=== PATIENT | male | born 1965 | race Caucasian/White ===

== ENCOUNTER 2018-05-26 20:41 | Emergency (ER) | payer BC ==
[2018-05-26 20:54] VITALS: BP 117/70
--- NOTE | 2018-05-26 21:21 | ED ---
HPI Febrile Illness - HPI Summary HPI Summary: 52-year-old male with history of rheumatoid arthritis and currently on Humira and prednisone presents with 2 day history of fever. States fever has been as high as 103.9 Fahrenheit. Took ibuprofen approximately 7 PM tonight. Associated with some generalized malaise, fatigue, and right hip versus lower back pain. Denies headache, neck pain, photophobia, nasal congestion or drainage, sore throat, ear pain or drainage, cough, chest pain, shortness of breath, abdominal pain, nausea vomiting or diarrhea, dysuria, frequency, urgency , or hematuria. Significant other had URI with fever last week. - History of Current Complaint Chief Complaint: UCGeneralIllness Time Seen by Provider: 05/26/18 20:51 Hx Obtained From: Patient Initial Severity: Mild Current Severity: Mild Pain Intensity: 3 Aggravating Factors: Nothing Alleviating Factors: OTC Medicine Associated Signs and Symptoms: Chills, Myalgia - Review is - Allergy/Home Medications Allergies/Adverse Reactions: Allergies Allergy/AdvReac Type Severity Reaction Status Date / Time No Known Allergies Allergy Verified 05/26/18 20:53 Home Medications: Home Medications Adalimumab [Humira] 40 mg SQ DAILY WITH MEAL 05/26/18 [History Confirmed ] DULoxetine DR CAP* [Cymbalta CAP*] 60 mg PO DAILY 05/26/18 [History Confirmed ] Diclofenac Sodium 75 mg PO DAILY WITH MEAL 05/26/18 [History Confirmed 05/26/18] Omeprazole CAP* [Prilosec CAP* 20 MG] 20 mg PO DAILY 05/26/18 [History Confirmed 05/26/18] buPROPion SR TAB* [Wellbutrin SR TAB*] 300 mg PO BID 05/26/18 [History Confirmed 05/26/18] predniSONE [Prednisone 5 MG Tab.Ds.Pk] 5 mg PO DAILY WITH MEAL 05/26/18 [ History Confirmed 05/26/18] PMH/Surg Hx/FS Hx/Imm Hx Previously Healthy: Yes Endocrine/Hematology History: Reports: Autoimmune Disease - rheumatoid arthritis - Surgical History Surgery Procedure, Year, and Place: lesion in throat Infectious Disease History: No Infectious Disease History: Denies: Hx Hepatitis, Hx Human Immunodeficiency Virus (HIV), Traveled Outside the [place] in Last 30 Days - Family History Known Family History: Positive: Other - noncontributory - Social History Occupation: Employed Full-time Lives: With Family Alcohol Use: Occasionally Substance Use Type: Reports: None Smoking Status (MU): Former Smoker Type: Cigarettes Have You Smoked in the Last Year: No Review of Systems Positive: Fever, Chills Eyes: Negative ENT: Negative Cardiovascular: Negative Respiratory: Negative Gastrointestinal: Negative Genitourinary: Negative Positive: Arthralgia Skin: Negative All Other Systems Reviewed And Are Negative: Yes Physical Exam Triage Information Reviewed: Yes Vital Signs On Initial Exam: Initial Vitals Temp Pulse Resp BP Pulse Ox 98.7 F 71 20 117/70 99 05/26/18 20:48 05/26/18 20:48 05/26/18 20:48 05/26/18 20:48 05/26/18 20:48 Vital Signs Reviewed: Yes Appearance: Positive: Well-Appearing, No Pain Distress, Well-Nourished Skin: Positive: Warm, Skin Color Reflects Adequate Perfusion, Dry Eyes: Positive: Conjunctiva Clear ENT: Positive: Hearing grossly normal, Pharynx normal, TMs normal, Uvula midline. Negative: Nasal congestion, Nasal drainage, Sinus tenderness Neck: Positive: Supple, Nontender, No Lymphadenopathy Respiratory/Lung Sounds: Positive: Clear to Auscultation, Breath Sounds Present , Other - Fine crackles right middle lobe Cardiovascular: Positive: Normal, RRR, S1, S2. Negative: Murmur Abdomen Description: Positive: Nontender, No Organomegaly, Soft. Negative: CVA Tenderness (R), CVA Tenderness (L) Musculoskeletal: Positive: Normal Diagnostics - Vital Signs Vital Signs Temp Pulse Resp BP Pulse Ox 05/26/18 20:48 98.7 F 71 20 117/70 99 - Laboratory Lab Statement: Any lab studies that have been ordered have been reviewed, and results considered in the medical decision making process. Course/Dx - Course Course Of Treatment: 52-year-old patient with report of fever as high as 103.9 since yesterday. History of rheumatoid arthritis and presently on Humira and prednisone. Physical exam was unremarkable although some fine crackles were noted right middle lobe. Patient was also reporting some low back pain versus hip pain. No CVA tenderness was noted. Hip exam benign. Pqpft-kc-[id number] urinalysis was negative except for trace blood. Two-view chest x-ray showed no active disease process. This was a preliminary reading done by myself. Suspect viral origin for his fever however will obtain a CBC tonight to evaluate white blood cell count. Recommend conservative treatment for viral illness including rest, plenty of fluids, and vnim-huh-djhvheg acetaminophen or ibuprofen according to directions as needed for fever, aches, and pain. Patient should contact his electric tool repairer for directions regarding his next dose of Humira. Patient is aware he should seek immediate medical attention in the emergency room should he have persistent fever or any worsening of symptoms. - Febrile Illness Differential Diagnoses: Fever of Unknown Origin, Pyelonephritis, Sepsis, Other: - UTI, viral syndrome, pneumonia - Diagnoses Provider Diagnoses: Fever and chills Discharge - Sign-Out/Discharge Documenting (check all that apply): Patient Departure - Discharge Plan Condition: Stable Disposition: HOME Patient Education Materials: Viral Syndrome (ED) Referrals: Hemal Gutierrez [Primary Care Provider] - 3 Days (if symptoms persist.) Additional Instructions: Your exam today did not reveal any origin for your fever. I suspect that it is viral in origin. Your chest x-ray was normal and a urine test was also normal except for some trace blood. I recommend make an appointment with her primary care provider to have this rechecked. Get plenty of rest. Drink plenty of fluids especially while you have fever to avoid dehydration. Take kexc-hbw-jtpexsi acetaminophen (Tylenol) or ibuprofen ( Advil, Motrin) according to directions as needed for fever, aches, or pain. Follow-up with your primary care provider in 3 days if symptoms persist. Please contact her electric tool repairer for directions regarding your next dose of Humira. Seek immediate medical attention in the emergency room should she have persistent fever despite taking ibuprofen or acetaminophen, have chest pain, shortness of breath, or any worsening of symptoms. - Billing Disposition and Condition Condition: STABLE Disposition: Home
--- NOTE | 2018-05-27 07:09 | RAD ---
INDICATION: Fever and shortness of breath COMPARISON: None TECHNIQUE: PA and lateral views of the chest were obtained. FINDINGS: The heart and mediastinum are normal in size and contour. There is asymmetric faint patchy density overlying the mid-level right lung. Elsewhere the lungs are grossly clear. There is no evidence of large pleural effusion. Visualized bones are normal for the patient's age. There is no radiographic evidence of free air beneath the diaphragm IMPRESSION: PATCHY DENSITY OVERLYING THE MID-LEVEL RIGHT LUNG COULD BE PNEUMONIA IN THE CORRECT CLINICAL SETTING. FOLLOW-UP CHEST X-RAY AFTER AN APPROPRIATE COURSE OF THERAPY IS ADVISED TO ASCERTAIN RESOLUTION. R2
--- NOTE | 2018-05-27 07:20 | UC ---
- Progress Note Progress Note: Final read of CXR Attending Doctor: Roger Menon ([id number]) Butt Presser: Ezequiel Jackson ([id number]) Technology Instructor: JOSE (SHYAMANCE) Report Date: 05/26/2018 21:15:00 Report Status: Final Begin of Report Content Patient Name: VIVIEN MUNOZ Medical Record#: [id number] Ordering Physician: Franklin Gonzalez NP Acct.#: [id number] : 1965 Age: 52 Sex: M Location: [facility] Exam Date: 05/26/182114 ADM Status: DEP ER Order Information: CHEST PA LAT 2 VWS Accession Number: [id number] CPT: 48503 INDICATION: Fever and shortness of breath COMPARISON: None TECHNIQUE: PA and lateral views of the chest were obtained. FINDINGS: The heart and mediastinum are normal in size and contour. There is asymmetric faint patchy density overlying the mid-level right lung. Elsewhere the lungs are grossly clear. There is no evidence of large pleural effusion. Visualized bones are normal for the patient's age. There is no radiographic evidence of free air beneath the diaphragm IMPRESSION: PATCHY DENSITY OVERLYING THE MID-LEVEL RIGHT LUNG COULD BE PNEUMONIA IN THE CORRECT CLINICAL SETTING. FOLLOW-UP CHEST X-RAY AFTER AN APPROPRIATE COURSE OF THERAPY IS ADVISED TO ASCERTAIN RESOLUTION. R2 <Electronically signed by Ezequiel Jackson MD in OV> 05/27/18704 Dictated By: Ezequiel Jackson MD Dictated Date/Time: 05/27/18704 Transcribed Date/Time: 05/27/18702 Copy to: CC:Hemal HERNANDEZ; Franklin Gonzalez NP; Roger Menon MD Imaging - [facility] Imaging [facility] Urgent [facility] [address] [place] [address] [place] [address] ph ([phone]) ph ([phone]) ph ([phone]) Pt was not started on abx Pt is immunocompromised with fever Will send Rx to pharmacy Doxycycline Spoke to charge, Courtney Barfield - to call pt and update patient 05/27/18 7:18 Course/Dx - Diagnoses Provider Diagnoses: Fever and chills Discharge - Sign-Out/Discharge Documenting (check all that apply): Post-Discharge Follow Up - Discharge Plan Condition: Stable Disposition: HOME Patient Education Materials: Community Acquired Pneumonia (ED) Referrals: [place] HERNANDEZ,Hemal Lopez [Primary Care Provider] - 3 Days (if symptoms persist.) Additional Instructions: Your exam today did not reveal any origin for your fever. I suspect that it is viral in origin. Your chest x-ray was normal and a urine test was also normal except for some trace blood. I recommend make an appointment with her primary care provider to have this rechecked. Get plenty of rest. Drink plenty of fluids especially while you have fever to avoid dehydration. Take rcpz-byi-tohfnyk acetaminophen (Tylenol) or ibuprofen ( Advil, Motrin) according to directions as needed for fever, aches, or pain. Follow-up with your primary care provider in 3 days if symptoms persist. Please contact her tip tester for directions regarding your next dose of Humira. Seek immediate medical attention in the emergency room should she have persistent fever despite taking ibuprofen or acetaminophen, have chest pain, shortness of breath, or any worsening of symptoms. - Billing Disposition and Condition Condition: STABLE Disposition: Home
[2018-05-27 11:06] LABS: Hematocrit 40 % (42-52); Mean Corpuscular HGB Conc 35 g/dl (31-36); Mean Corpuscular Hemoglobin 32 pg (27-31); Mean Corpuscular Volume 91 fL (80-94); Mean Platelet Volume 8.7 um3 (7.4-10.4); Platelet Count 206 10^3/ul (150-450); Red Blood Count 4.45 10^6/ul (4.00-5.40); Red Cell Distribution Width 14 % (10.5-15); White Blood Count 10.4 10^3/ul (3.5-10.8)
[2018-05-27 11:09] LABS: ABS Basophils 0 10^3/ul (0-0.2); ABS Eosinophils 0.1 10^3/ul (0-0.6); ABS Lymphocytes 1.4 10^3/ul (1.0-4.8); ABS Neutrophils 7.8 10^3/ul (1.5-7.7)
[2018-05-27 11:39] LABS: ABS Basophils 0 10^3/ul (0-0.2); ABS Neutrophils 5.7 10^3/ul (1.5-7.7); Monocytes % 10 % (0-7)
== END 2018-05-26 22:08 | disposition home or self-care (01) ==
LOC: UCEAST 20:41
DX: R50.9 Fever, unspecified (principal); R53.81 Other malaise; R53.83 Other fatigue; Z87.891 Personal history of nicotine dependence
CPT/HCPCS: 36415; 71046; 81003; 85025; 85060; 99211; G0463

== ENCOUNTER 2018-05-27 07:39 | Inpatient (IN) | payer BC ==
[2018-05-27] MEDS ORDERED: cefTRIAXone(*) 1 GM in NS 0.9% 50 ML* 50 ML IVPB ONE (08:09)
--- NOTE | 2018-05-27 08:23 | ED ---
Abdominal Pain/Male - HPI Summary HPI Summary: This is scribe Jam Antoine documenting for attending Dr. Christophe Drake This patient is a 52 year old M presenting to [facility] accompanied by his with a chief complaint of fever since 3 days ago. Patient endorses their thermometer measured the highest fever at 105 this AM, so he took 600 mg ibuprofen which alleviated sx to near normal temperature. He endorses dull lower back pain, N/V/D (diarrhea was watery, started last night), cramping abd pain, hematuria, and dull left ear pain. Pt denies dysuria, frequency, urgency, recent traveling, denies sore throat, eating unusual food, taking abx recently, rashes, and finding any ticks but they are a possibility. PMHx back issues, knee issues, hip issues. PMHx RA, osteoarthritis, rx Maida (started 8 weeks ago and done 4 doses), Prednisone. I, Dr. Saeed personally performed the services described in this documentation as scribed in my presence and it is both accurate and complete. - History of Current Complaint Chief Complaint: EDFever Stated Complaint: FEVER,V/D,CHILLS Time Seen by Provider: 05/27/18 08:01 Hx Obtained From: Patient, Family/Law Enforcement Director - Onset/Duration: Gradual Onset, Lasting Days - 3, Still Present Timing: Constant, Lasting Days Severity Initially: Moderate Severity Currently: Moderate Pain Intensity: 6 Pain Scale Used: 0-10 Numeric Location: Diffuse Radiates: Yes Radiates to: Back Character: Dull, Cramping Aggravating Factor(s): Nothing Alleviating Factor(s): Nothing Associated Signs And Symptoms: Positive: Fever, Back Pain, Urinary Symptoms, Nausea, Vomiting, Diarrhea - Allergies/Home Medications Allergies/Adverse Reactions: Allergies Allergy/AdvReac Type Severity Reaction Status Date / Time No Known Allergies Allergy Verified 05/27/18 07:46 PMH/Surg Hx/FS Hx/Imm Hx Endocrine/Hematology History: Denies: Hx Diabetes, Hx Thyroid Disease Cardiovascular History: Denies: Hx Hypertension Respiratory History: Denies: Hx Asthma, Hx Chronic Obstructive Pulmonary Disease (COPD) GI History: Denies: Hx Ulcer History: Denies: Hx Dialysis Musculoskeletal History: Reports: Hx Arthritis, Hx Rheumatoid Arthritis, Hx Back Problems Sensory History: Denies: Hx Legally Blind, Hx Deafness Opthamlomology History: Denies: Hx Legally Blind EENT History: Denies: Hx Deafness Psychiatric History: Denies: Hx Schizophrenia - Surgical History Surgery Procedure, Year, and Place: lesion in throat Infectious Disease History: No Infectious Disease History: Denies: Hx Hepatitis, Hx Human Immunodeficiency Virus (HIV), Traveled Outside the [place] in Last 30 Days - Family History Known Family History: Positive: Cardiac Disease, Hypertension, Diabetes - Social History Lives: With Family Alcohol Use: Occasionally Substance Use Type: Reports: Marijuana Substance Use Comment - Amount & Last Used: daily medical use Hx Tobacco Use: No Smoking Status (MU): Former Smoker Type: Cigarettes Have You Smoked in the Last Year: No Review of Systems Positive: Fever Positive: Ear Ache - left Positive: Abdominal Pain, Vomiting, Diarrhea, Nausea Positive: hematuria. Negative: dysuria, frequency, urgency Positive: Arthralgia - right knee, hip, general (RA and OA), Myalgia - lower back Negative: Rash All Other Systems Reviewed And Are Negative: Yes Physical Exam - Summary Physical Exam Summary: VITAL SIGNS: Reviewed. GENERAL: Patient is a well-developed and nourished male who is lying comfortable in the stretcher. Patient is not in any acute respiratory distress. HEAD AND FACE: No signs of trauma. No ecchymosis, hematomas or skull depressions. No sinus tenderness. EYES: PERRLA, EOMI x 2, No injected conjunctiva, no nystagmus. EARS: Hearing grossly intact. Ear canals and tympanic membranes are within normal limits. MOUTH: Oropharynx within normal limits. Dry oral mucosa. NECK: Supple, trachea is midline, no adenopathy, no JVD, no carotid bruit, no c- spine tenderness, neck with full ROM. CHEST: Symmetric, no tenderness at palpation LUNGS: Clear to auscultation bilaterally. No wheezing or crackles. CVS: Regular rate and rhythm, S1 and S2 present, no murmurs or gallops appreciated. ABDOMEN: Soft, non-tender. No signs of distention. No rebound no guarding, and no masses palpated. Bowel sounds are normal. EXTREMITIES: FROM in all major joints, no edema, no cyanosis or clubbing. NEURO: Alert and oriented x 3. No acute neurological deficits. Speech is normal and follows commands. SKIN: Dry and warm Triage Information Reviewed: Yes Vital Signs On Initial Exam: Initial Vitals Temp Pulse Resp BP Pulse Ox 98.9 F 76 18 120/73 95 05/27/18 07:42 05/27/18 07:42 05/27/18 07:42 05/27/18 07:42 05/27/18 07:42 Vital Signs Reviewed: Yes Diagnostics - Vital Signs Vital Signs Temp Pulse Resp BP Pulse Ox 05/27/18 08:13 100.3 F 05/27/18 07:42 98.9 F 76 18 120/73 95 - Laboratory Result Diagrams: 05/28/18 05:24 05/28/18 05:24 Lab Statement: Any lab studies that have been ordered have been reviewed, and results considered in the medical decision making process. - EKG 0824 Cardiac Rate: NL - 72 ST Segment: Normal Ectopy: None EKG Interpretation: No STEMI, nl axis Abdominal Pain Fem Course/Dx - Course Assessment/Plan: This patient is a 52-year-old male who presents to the emergency department with chief complaint of having fevers up to 105. The patient has also complaints of watery diarrhea with no blood or mucus. Blood test results without any significant abnormality, except of for C reactive protein 139. Chest x-ray performed yesterday at the urgent care shows that the patient has a patchy density over the mid level of right long which equal represent pneumonia in the correct clinical setting. Because of the fever, the positive infiltrate in the chest x-ray and the patient is taking Humira, I believe the patient has pneumonia. Therefore I discussed the case with Dr. Tipton from the hospital services who accepted the patient for admission. Patient is hemodynamically stable alert and oriented 3. - Diagnoses Provider Diagnoses: Pneumonia - Provider Notifications Discussed Care Of Patient With: Royal Tipton Time Discussed With Above Provider: 09:19 Instructed by Provider To: Other - Accepts admission. Discharge - Sign-Out/Discharge Documenting (check all that apply): Patient Departure - admit - Discharge Plan Condition: Fair Disposition: ADMITTED TO [facility] - Billing Disposition and Condition Condition: FAIR Disposition: Admitted to [facility] Attestations User Type: Provider with Scribe Provider Attestation: The documentation recorded by the scribe accurately reflects the service I personally performed and the decisions made by me. Attestation Statement User Type: Provider - I, Dr. Saeed personally performed the services described in this documentation as scribed in my presence and it is both accurate and complete.
[2018-05-27 08:32] LABS: ABS Basophils 0 10^3/ul (0-0.2); ABS Eosinophils 0.1 10^3/ul (0-0.6); ABS Monocytes 0.9 10^3/ul (0-0.8); ABS Neutrophils 7.7 10^3/ul (1.5-7.7); ABS Nucleated RBC 0 10^3/ul; Eosinophil % 0.8 % (0-6); Hematocrit 41 % (42-52); Hemoglobin 14.4 g/dl (14.0-18.0); Lymphocyte % 10.2 % (25-47); Mean Corpuscular HGB Conc 35 g/dl (31-36); Mean Corpuscular Hemoglobin 32 pg (27-31); Mean Corpuscular Volume 89 fL (80-94); Mean Platelet Volume 7.6 um3 (7.4-10.4); Nucleated Red Blood Cells % 0; Platelet Count 199 10^3/ul (150-450); Red Blood Count 4.57 10^6/ul (4.00-5.40); Red Cell Distribution Width 14 % (10.5-15); White Blood Count 9.7 10^3/ul (3.5-10.8)
[2018-05-27] MEDS: NS 0.9% 1000 ML* 2,000 ML IV ONE (08:48)
[2018-05-27 08:53] LABS: EGFR Non-African American 99.7 (>60)
[2018-05-27 10:39] LABS: Urine Appearance Clear; Urine Blood Negative (Negative); Urine Color Yellow; Urine Ketones Trace (Negative); Urine Protein Negative (Negative); Urine Specific Gravity 1.015 (1.010-1.030); Urine Urobilinogen Negative (Negative)
[2018-05-27] MEDS ORDERED: Albuterol 2.5 MG/3 ML NEB.SOL* (0.083%) INH PRN (11:26)
[2018-05-27] MEDS ORDERED: Albuterol/Ipratropium NEB.SOL* Albuterol 2.5 MG/Ipratropium 0.5 MG 3 ML INH SCH ×2 (12:00→13:00)
[2018-05-27] MEDS ORDERED: Azithromycin IV(*) 500 MG in D5W 250 ML BAG* 250 ML IVPB SCH (12:00)
[2018-05-27] MEDS: NS 0.9% 1000 ML* 1,000 ML IV SCH (12:50)
[2018-05-27] MEDS: Enoxaparin(*) 40 MG/0.4 ML SYR SUBCUT SCH (12:50)
[2018-05-27] MEDS ORDERED: Acetaminophen TAB* 325 MG ONE (13:01)
[2018-05-27] MEDS: Azithromycin IV(*) 500 MG in NS 0.9% 250 ML* 250 ML IVPB SCH (13:02)
[2018-05-27] MEDS: Acetaminophen TAB* 325 MG PO PRN ×2 (13:02→23:51)
--- NOTE | 2018-05-27 13:11 | HP ---
HISTORY AND PHYSICAL: DATE OF ADMISSION: 05/27/18 CHIEF COMPLAINT: Fever. HISTORY OF PRESENT ILLNESS: The patient is a 52-year-old gentleman with history of osteoarthritis of his knees, slip disk between L1 to L2 and L4 to L5 as well as RA on Humira, who mentioned that he has been having some fevers for the past 3 days, which was accompanied by a symptom of dyspnea on exertion. He denied any increased cough, no sputum production, but feels chilled and flushed ever since and generally feels unwell. He mentions that last night his fever increased to a 105 degrees and he began having some watery diarrhea and has at least vomited x1. A few hours previous to last night's episode, he visited the urgent care clinic and had a chest x-ray and was told that it was normal. He presented today given the symptoms described last night and upon review of the chest x-ray he does have some possible air bronchograms in the right middle lobe and in the appropriate clinical setting in an otherwise immunocompromised patient. This is likely outside medical sales representative of pneumonia. In the ED, he had been given Rocephin and I have added azithromycin to cover for atypicals to his regimen. PAST MEDICAL HISTORY: 1. Rheumatoid arthritis. 2. Slip disk in the level of L1 to L2 and L4 to L5. 3. Osteoarthritis of the knees. 4. GERD. 5. Depression. PAST SURGICAL HISTORY: None claimed by patient. ALLERGIES: NKDA. FAMILY HISTORY: Rheumatoid arthritis, his mother; heart disease his father; DVT his brother and possibly his mother. SOCIAL HISTORY: He denied smoking or having ever smoked nor having any history of alcohol problems, although he mentioned that he just recently started medical marijuana program for his rheumatoid arthritis. He is , with 1 child who is a 20-year-old and is healthy. REVIEW OF SYSTEMS: Fevers, chills, nausea and vomiting as well as diarrhea described above. Other than this, he denied any headache, dizziness, abdominal pain, myalgias, arthralgias, throat pain or new skin lesions. The rest of the 14- point review of systems other than what was described are otherwise unremarkable. PHYSICAL EXAMINATION GENERAL: The patient is a awake, alert, and oriented x3. The patient appeared ill, flushed, otherwise hemodynamically stable. VITAL SIGNS: Most recent vital signs off records with blood pressure of 140/85 , 76 beats per minute heart rate, saturating at 96%, respiratory rate of 24 per minute from previous of 19 and 24. HEENT: Normocephalic, atraumatic, PERRLA. Extraocular muscles intact. Negative for icterus. Moist oral mucosa. Negative throat erythema. NECK: Soft, supple with no cervical lymphadenopathy. No JVD. CHEST: Clear to auscultation bilaterally, good air entry. No wheezes, rales, or rhonchi. HEART: S1, S2 within normal limits, regular rate and rhythm. No murmurs, rubs and gallops. ABDOMEN: Soft, nondistended, nontender. Normoactive bowel sounds 4x q. EXTREMITIES: No cyanosis, clubbing, or edema. PSYCHIATRIC: No active psychosis, depression, suicidal, no homicidal ideation. SKIN: Warm to touch. LABORATORY DATA: Most recent and pertinent laboratory data were reviewed including CBC, which was otherwise reassuring except for mildly low hematocrit, but with normal hemoglobin and differentials for lymph and monocytes are likely indicative of his diagnosed pneumonia as discussed. His CMP is otherwise reassuring with only mildly elevated glucose level of 111. The rest were found to be within normal range. C-reactive protein was found to be elevated at 139.94. His lipase was found to be normal. Urinalysis was found to be normal. EKG showed sinus rhythm at the rate of 72 beats per minute with no ST segment changes. Chest x-ray done the day before on 05/26/18, shows patchy density of the mid right lung with possible air bronchograms and in the above clinical setting it is likely suggestive of pneumonia as discussed. ASSESSMENT AND PLAN: The patient is a 52-year-old gentleman with history of osteoarthritis, slip disk, and rheumatoid arthritis on Humira being admitted for pneumonia. 1. Community-acquired pneumonia: We will admit patient given patient is immunocompromised and we will continue to follow cultures. We will continue Rocephin. We will also add azithromycin to his regimen to cover for atypicals. We will send urine antigen test for both Legionella and streptococcus pneumoniae. Given the patient is already on prednisone at low dose, we will continue this for his rheumatoid arthritis. However, we will hold Humira at this point and consider restarting in 1 to 2 days. 2. Diarrhea: Likely secondary to above. The patient does not appear to have any significant electrolyte abnormalities based on current data. C. diff screen has already been sent. We will add fecal lactoferrin to his regimen. Cultures of his stools have also been sent by the ED and we will defer. 3. Rheumatoid arthritis. Please see above discussion. We will hold Humira for at least overnight and we will continue watchful waiting. 4. Gastroesophageal reflux disease, well-controlled. Continue omeprazole. 5. Depression. Continue duloxetine and bupropion. 6. DVT prophylaxis. We will place the patient on Lovenox 40 mg subcu daily. 7. Disposition. As above, for PT eval. [id number]/[facility] #: [id number] MTDD
[2018-05-27] MEDS: HYDROcodone/ACETAMIN 5-325 MG* 1 TAB PO PRN (16:53)
[2018-05-27] MEDS: Ondansetron INJ* 2 MG/ML VIAL IV PRN (20:09)
[2018-05-27] MEDS: buPROPion SR TAB.SR* 150 MG PO SCH (20:09)
[2018-05-28 05:36] LABS: ABS Basophils 0.1 10^3/ul (0-0.2); ABS Eosinophils 0 10^3/ul (0-0.6); ABS Lymphocytes 1.3 10^3/ul (1.0-4.8); ABS Monocytes 0.8 10^3/ul (0-0.8); ABS Neutrophils 6.8 10^3/ul (1.5-7.7); ABS Nucleated RBC 0 10^3/ul; Eosinophil % 0.2 % (0-6); Hematocrit 39 % (42-52); Hemoglobin 13.7 g/dl (14.0-18.0); Mean Corpuscular HGB Conc 35 g/dl (31-36); Mean Corpuscular Hemoglobin 31 pg (27-31); Mean Corpuscular Volume 90 fL (80-94); Mean Platelet Volume 7.3 um3 (7.4-10.4); Nucleated Red Blood Cells % 0; Platelet Count 201 10^3/ul (150-450); Red Blood Count 4.39 10^6/ul (4.00-5.40); Red Cell Distribution Width 14 % (10.5-15)
[2018-05-28 05:55] LABS: EGFR Non-African American 102.6 (>60)
[2018-05-28] MEDS: Omeprazole CAP* 20 MG PO SCH (08:43)
[2018-05-28] MEDS: DULoxetine DR CAP* 60 MG CAP.DR PO SCH (08:43)
[2018-05-28] MEDS: buPROPion SR TAB.SR* 150 MG PO SCH ×2 (08:43→21:09)
[2018-05-28] MEDS: predniSONE TAB* 5 MG PO SCH (08:43)
[2018-05-28] MEDS: Diclofenac Sodium EC TAB* 25 MG PO SCH (08:43)
[2018-05-28] MEDS: HYDROcodone/ACETAMIN 5-325 MG* 1 TAB PO PRN (08:43)
[2018-05-28] MEDS: Ondansetron INJ* 2 MG/ML VIAL IV PRN (12:22)
[2018-05-28] MEDS: Azithromycin IV(*) 500 MG in NS 0.9% 250 ML* 250 ML IVPB SCH (12:23)
[2018-05-28] MEDS: Enoxaparin(*) 40 MG/0.4 ML SYR SUBCUT SCH (12:24)
[2018-05-28] MEDS: NS 0.9% 1000 ML* 1,000 ML IV SCH (12:26)
--- NOTE | 2018-05-28 16:14 | PN ---
Subjective Date of Service: 05/28/18 Interval History: Pt seen and examined. Meds and labs reviewed. CC: SOB, improved due to Legionella PNA ROS: Denied MENDEZ/dizziness, F/C, N/V, CP, SOB, increased cough, sputum production , abd pain, diarrhea, constipation, dysuria, myalgias, arthralgias, throat pain , and new skin lesions. The rest of the 14 point ROS are unremarkable. PHYSICAL EXAM: GEN APPEARANCE: Awake, not in acute distress HEENT: NC/AT, PERRLA, moist oral mucosa, (-) throat erythema NECK: Soft, supple, (-) cervical LAD, (-)JVD HEART: S1S2 WNL, RRR, No MRG CHEST: CTA, BL, GAE, No W/R/R ABD: Soft, ND/NT, NABS 4x Q EXT: No C/C/E SKIN: Warm to touch PSYCH: No active psychosis, hallucinations, depression, SI/HI Objective Active Medications: Acetaminophen (Tylenol Tab*) 650 mg PO Q6H PRN PRN Reason: FEVER/PAIN Last Admin: 05/27/18 23:51 Dose: 650 mg Hydrocodone Bitart/Acetaminophen ([place] 5-325 Tab*) 1 tab PO Q6H PRN PRN Reason: PAIN Last Admin: 05/28/18 08:43 Dose: 1 tab Albuterol (Ventolin 2.5 Mg/3 Ml Neb.Daly*) 2.5 mg INH Q2H PRN PRN Reason: SOB/WHEEZING Bupropion HCl (Wellbutrin Sr Tab*) 300 mg PO BID [facility] Last Admin: 05/28/18 08:43 Dose: 300 mg Diclofenac Sodium (Voltaren Ec Tab*) 75 mg PO DAILY WITH MEAL [facility] Last Admin: 05/28/18 08:43 Dose: 75 mg Duloxetine HCl (Cymbalta Cap*) 60 mg PO DAILY [facility] Last Admin: 05/28/18 08:43 Dose: 60 mg Enoxaparin Sodium (Lovenox(*)) 40 mg SUBCUT Q24H [facility] Last Admin: 05/28/18 12:24 Dose: 40 mg Sodium Chloride (Ns 0.9% 1000 Ml*) 1,000 mls @ 75 mls/hr IV PER RATE [facility] Stop: 05/29/18 01:04 Last Admin: 05/28/18 12:26 Dose: 75 mls/hr Azithromycin 500 mg/ Sodium (Chloride) 250 mls @ 250 mls/hr IVPB Q24H [facility] Stop: 06/01/18 11:59 Last Admin: 05/28/18 12:23 Dose: 250 mls/hr Omeprazole (Prilosec Cap*) 20 mg PO DAILY [facility] Last Admin: 05/28/18 08:43 Dose: 20 mg Ondansetron HCl (Zofran Inj*) 4 mg IV Q4H PRN PRN Reason: NAUSEA Last Admin: 05/28/18 12:22 Dose: 4 mg Prednisone (Deltasone Tab*) 5 mg PO DAILY [facility] Last Admin: 05/28/18 08:43 Dose: 5 mg Vital Signs - 8 hr 05/28/18 05/28/18 05/28/18 08:25 08:43 11:18 Temperature 98.2 F Pulse Rate 78 Respiratory 20 18 18 Rate Blood Pressure 138/76 (mmHg) O2 Sat by Pulse 99 Oximetry 05/28/18 05/28/18 12:19 15:22 Temperature 98.0 F 97.3 F Pulse Rate 53 52 Respiratory 16 18 Rate Blood Pressure 137/84 120/67 (mmHg) O2 Sat by Pulse 99 99 Oximetry Oxygen Devices in Use Now: None Result Diagrams: 05/28/18 05:24 05/28/18 05:24 Microbiology and Other Data: Microbiology 05/27/18 10:28 Stool Gross Appearance - Final Stool Shiga Toxin I & II - Final Negative Shiga Toxin 1 & 2 C. difficile DNA Amplification - Final 027 Presumptive NEGATIVE Toxigenic C.diff NEGATIVE Stool Lactoferrin - Final 05/27/18 10:28 Legionella Urinary Antigen - Final Urine Positive Legionella Antigen Streptococcus pneumoniae Ag Screen - Final Negative S. pneumo Antigen 05/27/18 08:40 Aerobic Blood Culture - Preliminary Blood Venous No Growth Day 1 Anaerobic Blood Culture - Preliminary No Growth Day 1 05/27/18 08:21 Aerobic Blood Culture - Preliminary Blood Venous No Growth Day 1 Anaerobic Blood Culture - Preliminary No Growth Day 1 Assess/Plan/Problems-Billing Assessment: - Patient Problems (1) Legionella pneumonia Current Visit: Yes Status: Acute Code(s): A48.1 - LEGIONNAIRES' DISEASE SNOMED Code(s): 426967725 Comment: -(+) Legionella urine Ag---Will D/C Rocephin and continue Azithromycin 500 mg for 7 days total -Blood cultures continue to be negative -Pt looks clinically improved (2) Diarrhea Current Visit: Yes Status: Acute Code(s): R19.7 - DIARRHEA, UNSPECIFIED SNOMED Code(s): 82366582 Comment: -Likely due to above -(-) Stool lactoferin, Shiga, and C. diff (3) Rheumatoid arthritis Current Visit: Yes Status: Acute Code(s): M06.9 - RHEUMATOID ARTHRITIS, UNSPECIFIED SNOMED Code(s): 30949121 Comment: -Continue to hold Humira and may restart tomorrow -Continue low dose prednisone (4) GERD (gastroesophageal reflux disease) Current Visit: Yes Status: Acute Code(s): K21.9 - GASTRO-ESOPHAGEAL REFLUX DISEASE WITHOUT ESOPHAGITIS SNOMED Code(s): 123294161 Comment: -Continue Omeprazole (5) DVT prophylaxis Current Visit: Yes Status: Acute Code(s): MVU5489 - SNOMED Code(s): 518835508 Comment: -Continue Lovenox Status and Disposition: -For possible D/C in AM
[2018-05-29] MEDS: Diclofenac Sodium EC TAB* 25 MG PO SCH (07:59)
[2018-05-29] MEDS: predniSONE TAB* 5 MG PO SCH (07:59)
[2018-05-29] MEDS: DULoxetine DR CAP* 60 MG CAP.DR PO SCH (07:59)
[2018-05-29] MEDS: buPROPion SR TAB.SR* 150 MG PO SCH (07:59)
[2018-05-29] MEDS: Omeprazole CAP* 20 MG PO SCH (07:59)
[2018-05-29 08:11] VITALS: BP 115/79
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
== END 2018-05-29 10:55 | disposition home or self-care (01) | DRG 137 ==
LOC: ED 07:39 → MEDTELE 11:03
PROVIDERS: ADMIT Student in an Organized Health Care Education/Training Program; ATTEND Student in an Organized Health Care Education/Training Program
DX: A48.1 Legionnaires' disease (principal); A04.8 Other specified bacterial intestinal infections; M17.0 Bilateral primary osteoarthritis of knee; M06.9 Rheumatoid arthritis, unspecified; M51.26 Other intervertebral disc displacement, lumbar region; K21.9 Gastro-esophageal reflux disease without esophagitis; F32.9 Major depressive disorder, single episode, unspecified; Z82.61 Family history of arthritis; Z83.2 Family history of diseases of the blood and blood-forming organs and certain disorders involving the immune mechanism; Z82.49 Family history of ischemic heart disease and other diseases of the circulatory system; Z83.3 Family history of diabetes mellitus; Z72.89 Other problems related to lifestyle; Z87.891 Personal history of nicotine dependence; Z79.52 Long term (current) use of systemic steroids
CPT/HCPCS: 36415; 80053; 81003; 83605; 83630; 83690; 83735; 83880; 84100; 85025; 86140; 87040; 87045; 87046; 87077; 87493; 87899; 93005; 99284; A9270-GY; J0456; J0696; J1650; J2405; J7512

== ENCOUNTER → 2019-05-11 08:29 | Day surgery (SDC) | payer BC ==
--- NOTE | 2019-04-28 07:59 | HP ---
PREOPERATIVE HISTORY AND PHYSICAL: DATE OF ADMISSION/SURGERY: 05/11/19 ATTENDING SURGEON: Dr. Cherry Whitley.* (DICTATED BY JEFERSON DANG) PROCEDURE: Right shoulder arthroscopic rotator cuff repair, decompression, debridement, possible subpectoral biceps tenodesis, excision of distal clavicle. CHIEF COMPLAINT: Right shoulder pain. HISTORY OF PRESENT ILLNESS: Donnell is a 53-year-old male who presents to the clinic for followup of right shoulder pain due to a rotator cuff tear, AC joint arthritis, and biceps tendonitis. He has failed conservative measures and therefore agreed to undergo a right shoulder arthroscopic rotator cuff repair, decompression, debridement, possible subpectoral biceps tenodesis, and excision of distal clavicle with Dr. Whitley on 05/11/19. PAST MEDICAL HISTORY: Rheumatoid arthritis, diverticulitis, depression, anxiety , Legionnaire disease in May, asthma, GERD, and low testosterone. PAST SURGICAL HISTORY: Endoscopy, colonoscopy, laryngoscope, and knee scope. The patient denies prior complications with anesthesia. MEDICATIONS: 1. Bupropion 300 mg 1 by mouth daily. 2. Duloxetine 60 mg 1 by mouth daily. 3. Prilosec OTC 20 mg 1 by mouth daily. 4. Testosterone 50 mg/5 g daily. 5. Enbrel SureClick 50 mg/mL. 6. Albuterol 108/90 mcg per ACT 1 to 2 puffs every 4 hours as needed for wheezing. ALLERGIES: No known drug allergies. FAMILY HISTORY: Positive for diabetes, heart disease, hypertension, cancer, rheumatoid, mental illness, and a brother with history of DVT for unknown reason. SOCIAL HISTORY: He lives with his spouse. He is self-employed. He denies tobacco use; he quit 18 years ago. He reports 1 alcoholic beverage per week. He exercises occasionally. He is right-hand dominant. REVIEW OF SYSTEMS: A 14-point review of systems was reviewed with the patient and positive for current complaint; otherwise, negative. Denies fever, chills, chest pain, shortness of breath, personal history of DVT or PE. Denies history of bleeding disorder. PHYSICAL EXAMINATION GENERAL: A 53-year-old well-developed, well-nourished male, in no acute distress. VITAL SIGNS: Height 67, weight 184, pulse rate 52, blood pressure 142/82, temperature 97.3, BMI 28.8. HEENT: Normocephalic, atraumatic. PERRLA. Throat clear. NECK: Supple. PULMONARY: Lungs are clear to auscultation bilaterally. No wheezing, rhonchi, or rales. CARDIO: Regular rate and rhythm. S1, S2. No murmurs, gallops, or rubs. No edema. ABDOMEN: Positive bowel sounds. Soft, nontender. NEURO: Alert and oriented x3. Cranial nerves grossly intact. MUSCULOSKELETAL: Right upper extremity: Skin is intact. No warmth or erythema. Forward flexion and abduction to 170, external rotation to 70, internal rotation to T8. Tenderness to palpation over the AC joint. +5/5 strength to rotator cuff testing with some discomfort. Positive impingement, Speed, [place], [place]. +2 radial pulse. Sensation intact to light touch distally. DIAGNOSTIC STUDIES: MRI of the right shoulder revealed partial-thickness tearing of the rotator cuff with a hooked acromion and subacromial impingement, fluid around the biceps, and AC joint arthritis. IMPRESSION: Right shoulder rotator cuff tear, acromioclavicular joint arthritis , and biceps tendinitis. PLAN: The patient is scheduled to undergo a right shoulder arthroscopic rotator cuff repair, decompression, debridement, possible subpectoral biceps tenodesis, and excision of distal clavicle with Dr. Whitley on 05/11/19. Percocet will be used for postop pain management. He will follow up 10 to 14 days postop for followup and suture removal. JEFERSON DANG [id number]/[facility] #: [id number] [facility] HOSPITALMargaux
[~2019-05-11 08:29] MED LIST: Buffered Lidocaine 1% SYRIN* 1 ML/SYRINGE INTRADERM ONE; Dexamethasone IV* 4 MG/ML 1 ML (4 MG) ONE; Lactated Ringers 1000 ML Bag* 1,000 ML IV SCH; Lidocaine 2% PF * 5 ML VIAL ONE; Midazolam* 1 MG/ML 2 ML VIAL (2 MG) ONE; Naloxone* 0.4 MG/ML 1 ML VIAL IV PRN; Ondansetron INJ* 2 MG/ML VIAL ONE; Propofol* 10 MG/ML 20 ML BTL ONE; ROPIVACAINE 5 MG/ML 30 ML BTL (0.5%) ONE; Ropivacaine 0.2% * 2 MG/ML VIAL ONE; ceFAZolin 2 GM in NS PREMIX(*) 2 GM/100 ML BAG IVPB ONE; fentaNYL* 50 MCG/ML 2 ML VIAL (100 MCG VIAL) ONE; oxyCODONE/Acetamin 5/325 MG* TAB ONE
[2019-05-11 14:03] VITALS: BP 149/97
--- NOTE | 2019-05-11 23:57 | OP ---
DATE OF OPERATION: 05/11/19 - [facility] DATE OF : 63 SURGEON: Cherry Whitley MD PRINT COLOR MATCHER: JEFERSON Clayton. Masonry Installer was needed for the entirety of the case to help with positioning, retraction, and utilized throughout all portions of the case. ANESTHESIOLOGIST: Dr. Wyatt. ANESTHESIA: General interscalene block. PRE-OP DIAGNOSES: Right shoulder high-grade partial thickness tear of rotator cuff with SLAP type 2 tear, bicipital tendinitis, as well acromioclavicular joint arthritis. POST-OP DIAGNOSES: Right shoulder high-grade partial thickness tear of rotator cuff with SLAP type 2 tear, bicipital tendinitis, as well acromioclavicular joint arthritis. OPERATIVE PROCEDURE: 1. Extensive glenohumeral debridement. 2. Subacromial decompression with acromioplasty. 3. Distal clavicle excision. 4. Rotator cuff repair with Regeneten patch. 5. Subpectoral biceps tenodesis. INDICATIONS: Donnell Bailon is a 53-year-old male, who has had persistent shoulder pain, was diagnosed with impingement and has failed conservative management. He also has AC joint arthritis. He has failed conservative management and elected to proceed with surgical treatment. Risks and benefits were discussed at length to include, but not limited to, bleeding; infection; damage to nerves, vessels, surrounding structures; wound nonhealing; persistent pain; need for further surgery; scarring; stiffness; incomplete relief of symptoms; risk of anesthesia. He has rheumatological issues and has been optimized with respect to his medications. COMPLICATIONS: None. ESTIMATED BLOOD LOSS: Minimal. IMPLANTS USED: Q-FIX 2.8 mm x1 and then Regeneten patch size large. DESCRIPTION OF PROCEDURE: The patient was greeted in the preoperative area by the attending surgeon. Correct extremity was marked and consent was confirmed. The patient was brought back to the operating suite. He was placed in supine position on the operating table. He then underwent general anesthesia with endotracheal intubation after which he was placed in the left lateral decubitus position. All bony prominences were padded. He was secured to the pegboard. The right arm was draped unsterile with 10 pounds of traction. Right shoulder was then prepped and draped in the usual sterile fashion beginning with chlorhexidine soap, scrub, and alcohol wipe and a final prep with ChloraPrep. After appropriate surgical pause indicating side, site, and procedure, administration of antibiotics, a standard postero-lateral portal was made sharply with 11 blade. The scope was introduced into the joint and the joint was examined. There were grade 0 to 1 changes in the glenohumeral joint. The anterior, posterior, and superior labrum had obvious fraying. There was obvious high-grade partial-thickness tearing of the supra extending into the infraspinatus tendon. The biceps had obvious synovitis and erythema and the superior labrum was torn. The anterior portal was made in an outside-in fashion. The biceps was then tenotomized for later tenodesis. The anterior- posterior superior labrum was debrided back. The inferior recess was intact. The undersurface of the rotator cuff had unstable flaps and partial tearing debrided back to remove any loose flaps and this was again a high-grade partial thickness tear. The subscap was intact. Once the intraarticular work was completed, attention was directed to the subacromial space. The scope was positioned in the subacromial space. The lateral portal was made in outside-in fashion. Shaver was used to debride back the abundant synovitis that was present. The undersurface of the acromion was skeletonized using electrocautery device. 4-0 oval bur was used to do an acromioplasty. Once this was done, loose debris was removed. Attention was directed to the AC joint. With the bur brought to the anterior portal, the distal 8 mm was then resected with care to preserve any coracoclavicular ligament. Once adequate resection was done, the clavicle was taken through gentle range of motion. The excess debris was then removed. Attention was directed to the rotator cuff. Again, the patient had high- grade partial thickness tearing about the undersurface on the articular side. Decision was made to proceed with a Regeneten patch. A size large was chosen again to cover both the supra and infraspinatus tendon. There were 2 separate stab incisions. The cannula was replaced to secure the tendon medially with soft tissue scottie and then laterally with PEEK scottie. Once this was appropriately secured and visualized, the shoulder was then taken through gentle range of motion and found to be appropriately secured. Final images were obtained. The wounds were then copiously irrigated with sterile saline. Attention was directed to biceps. The bed was airplaned to the right side. The anterior aspect of the shoulder was prepped again using ChloraPrep. A 15 blade was used to make an incision along the biceps tendon. Soft tissues were carefully dissected to expose the pec fascia. Once this was done, the remainder of dissection was done bluntly. The groove was then palpated. The biceps was brought through the wound and examined found to have abundant synovitis and tendinosis. The groove was prepared in the usual fashion using electrocautery device, red ball rasp, and osteotome. Once this was done, the Q-FIX was then drilled unicortically and then secured with excellent purchase. The sutures were then passed through the tendon approximately 1 cm proximal to the musculotendinous junction in a Murtaza- Ziggy type configuration. Excess stump was excised. The biceps was then secured. The wounds were copiously irrigated with sterile saline. The anterior wound was closed in layers with 3-0 Monocryl in deep and interrupted fashion. Portals were closed with 3-0 nylon. Sterile dressings were applied. Cryo/Cuff and UltraSling were applied. He was woken from anesthesia and transferred to PACU in stable condition. POSTOPERATIVE PLAN: He will be nonweightbearing. He will be in a sling for approximately 4 weeks. He will start physical therapy in the next 3 to 5 days. He will be discharged on pain medications and antibiotics. Due to his comorbidities, DVT prophylaxis was considered, but deferred due to no previous personal or family history. I will see the patient back in 10 to 14 days. [id number]/[facility] #: [id number] [facility]OSPITALMargaux
== END | disposition home or self-care (01) ==
LOC: OR 08:29
PROVIDERS: ATTEND Orthopaedic Surgery
DX: S46.011A Strain of muscle(s) and tendon(s) of the rotator cuff of right shoulder, initial encounter (principal); S43.491A Other sprain of right shoulder joint, initial encounter; X58.XXXA Exposure to other specified factors, initial encounter; Y92.9 Unspecified place or not applicable; M75.41 Impingement syndrome of right shoulder; M75.21 Bicipital tendinitis, right shoulder; M19.011 Primary osteoarthritis, right shoulder; G89.18 Other acute postprocedural pain; M06.9 Rheumatoid arthritis, unspecified; F41.8 Other specified anxiety disorders; K21.9 Gastro-esophageal reflux disease without esophagitis; J45.909 Unspecified asthma, uncomplicated; L94.8 Other specified localized connective tissue disorders
CPT/HCPCS: A9270-GY; C1713; C1776; J0690; J1100; J2250; J2405; J2704; J2795; J3010